=== PATIENT | female | born 1955 | race Hispanic/Latino ===

== ENCOUNTER 2018-11-01 10:34 | Emergency (ER) | payer OTHER ==
--- NOTE | 2018-11-01 12:42 | ER ---
Nurse's Notes [facility] Name: Marianna Rosales Age: 63 yrs Sex: Female : 1955 Arrival Date: 11/01/2018 Time: 10:35 Bed 15 Private MD: Diagnosis: Neuralgia and neuritis, unspecified;Cervical disc disorders Presentation: 11/01 10:51 Presenting complaint: Patient states: "the veins in my neck feel like pressure and the aa5 veins in my leg too". Pt c/o john leg swelling. Pt reports symptoms began 1 week ago. Denies headache, denies dizziness. Pt states "also my tremors are getting worse". Transition of care: patient was not received from another setting of care. Onset of symptoms was October 2018. Risk Assessment: Do you want to hurt yourself or someone else? Patient reports no desire to harm self or others. Initial Sepsis Screen: Does the patient meet any 2 criteria? No. Patient's initial sepsis screen is negative. Does the patient have a suspected source of infection? No. Patient's initial sepsis screen is negative. Care prior to arrival: None. 10:51 Method Of Arrival: Ambulatory aa5 10:51 Acuity: DESI 3 aa5 Historical: - Allergies: 10:54 No Known Allergies; aa5 - Home Meds: 10:54 atenolol 50 mg Oral tab [Active]; carbidopa-levodopa 25-100 mg Oral tab [Active]; aa5 aspirin 81 mg Oral chew 1 tab once daily [Active]; - PMHx: 10:54 tremors (possible parkinson's); Hypertension; aa5 - PSHx: 10:54 None; aa5 - Immunization history:: Flu vaccine status is unknown. - Social history:: Smoking status: Patient/guardian denies using tobacco. - Ebola Screening: : No symptoms or risks identified at this time. Screenin:07 Abuse screen: Denies threats or abuse. Denies injuries from another. Nutritional ph screening: No deficits noted. Tuberculosis screening: No symptoms or risk factors identified. Fall Risk None identified. Vital Signs: 10:54 BP 139 / 76; Pulse 65; Resp 18 S; Temp 97.9(TE); Pulse Ox 97% on R/A; Weight 74.39 kg aa5 (R); Height 5 ft. 4 in. (164 cm) (R); Pain 0/10; 10:54 Body Mass Index 27.66 (74.39 kg, 164 cm) [facility] ED Course: 10:35 Patient arrived in ED. as 10:51 Arm band placed on. [facility] 10:53 Triage completed. [facility] 12:04 Abdirashid Hall MD is Attending Physician. 12:06 Milagro Mckeon RN is Primary Nurse. ph 12:08 Patient has correct armband on for positive identification. Bed in low position. Call light in reach. Side rails up X 1. Administered Medications: No medications were administered Outcome: 12:41 Discharge ordered by . 13:19 Patient left the ED. ph Signatures: Brandi Salomon Audri, FILIBERTO RN [facility] Milagro Mckeon, FILIBERTO [facility] Abdirashid Hall MD MD
--- NOTE | 2018-11-01 12:42 | EDPHYS ---
Physician Documentation [facility] Name: Marianna Rosales Age: 63 yrs Sex: Female : 1955 Arrival Date: 11/01/2018 Time: 10:35 Bed 15 Private MD: ED Physician Abdirashid Hall HPI: 11/01 13:04 This 63 yrs old Female presents to ER via Ambulatory with complaints of Leg gs Pain, Neck Pain, >24Hrs Old. 13:04 The patient or guardian complains of pain, that is acute. The symptoms are located on gs the left supraclavicular area. Onset: The symptoms/episode began/occurred 8 day(s) ago. Associated signs and symptoms: Pertinent negatives: fever, headache, bladder incontinence, bowel incontinence, numbness, tingling, weakness. The pain does not radiate. Modifying factors: the symptoms are aggravated by movement. Severity of symptoms: At their worst the symptoms were moderate, in the emergency department the symptoms are unchanged. The patient has not experienced similar symptoms in the past. ALSO COMPLAINS OF VEINS IN LEGS HURTING HAS A HISTORY OF VARICOSE VEINS AND VARICOSE VEIN SURGERY, STILL HAS VV.. Historical: - Allergies: 10:54 No Known Allergies; aa5 - Home Meds: 10:54 atenolol 50 mg Oral tab [Active]; carbidopa-levodopa 25-100 mg Oral tab [Active]; aa5 aspirin 81 mg Oral chew 1 tab once daily [Active]; - PMHx: 10:54 tremors (possible parkinson's); Hypertension; aa5 - PSHx: 10:54 None; aa5 - Immunization history:: Flu vaccine status is unknown. - Social history:: Smoking status: Patient/guardian denies using tobacco. - Ebola Screening: : No symptoms or risks identified at this time. ROS: 13:04 All other systems are negative. gs Exam: 13:04 Head/Face: Normocephalic, atraumatic. Eyes: Pupils equal round and reactive to light, gs extra-ocular motions intact. Lids and lashes normal. Conjunctiva and sclera are non-icteric and not injected. Cornea within normal limits. Periorbital areas with no swelling, redness, or edema. ENT: Nares patent. No nasal discharge, no septal abnormalities noted. Tympanic membranes are normal and external auditory canals are clear. Oropharynx with no redness, swelling, or masses, exudates, or evidence of obstruction, uvula midline. Mucous membranes moist. Chest/axilla: Normal chest wall appearance and motion. Nontender with no deformity. No lesions are appreciated. Cardiovascular: Regular rate and rhythm with a normal S1 and S2. No gallops, murmurs, or rubs. Normal PMI, no JVD. No pulse deficits. Respiratory: Lungs have equal breath sounds bilaterally, clear to auscultation and percussion. No rales, rhonchi or wheezes noted. No increased work of breathing, no retractions or nasal flaring. Abdomen/GI: Soft, non-tender, with normal bowel sounds. No distension or tympany. No guarding or rebound. No evidence of tenderness throughout. Back: No spinal tenderness. No costovertebral tenderness. Full range of motion. Skin: Warm, dry with normal turgor. Normal color with no rashes, no lesions, and no evidence of cellulitis. Neuro: Awake and alert, GCS 15, oriented to person, place, time, and situation. Cranial nerves II-XII grossly intact. Motor strength 5/5 in all extremities. Sensory grossly intact. Cerebellar exam normal. Normal gait. 13:04 Constitutional: The patient appears alert, awake. 13:04 Neck: External neck: tenderness, that is mild, of the left sternocleidomastoid, C-spine: vertebral tenderness, is not appreciated, ROM/movement: pain, that is mild, Meningeal signs: are not present. 13:04 Musculoskeletal/extremity: Pulses: are normal with no appreciated deficits, Perfusion: gs the patient is normally perfused throughout, Calf tenderness, is absent, DVT Exam: no pain, no swelling, no tenderness, negative Homans' sign noted on exam, no appreciated bluish discoloration, no erythema, no increased warmth, BL vv NOTED LOWER EXTREMITIES. Vital Signs: 10:54 BP 139 / 76; Pulse 65; Resp 18 S; Temp 97.9(TE); Pulse Ox 97% on R/A; Weight 74.39 kg aa5 (R); Height 5 ft. 4 in. (164 cm) (R); Pain 0/10; 10:54 Body Mass Index 27.66 (74.39 kg, 164 cm) aa5 MDM: 12:28 Patient medically screened. gs 13:04 Differential diagnosis: Cervical Raiculopathy cervical strain, NEUROPATHIC PAIN. Data gs reviewed: vital signs, nurses notes. Counseling: I had a detailed discussion with the patient and/or guardian regarding: the historical points, exam findings, and any diagnostic results supporting the discharge/admit diagnosis, the need for outpatient follow up. Administered Medications: No medications were administered Disposition: 11/01/18 12:41 Discharged to Home. Impression: Neuralgia and neuritis, unspecified, Cervical disc disorders. - Condition is Stable. - Discharge Instructions: Cervical Radiculopathy, Neuropathic Pain. - Prescriptions for Tylenol- Codeine #3 300-30 mg Oral Tablet - take 1 tablet by ORAL route every 12 hours As needed; 10 tablet. - Medication Reconciliation Form, Thank You Letter, Antibiotic Education, Prescription Opioid Use form. - Follow up: Private Physician; When: 2 - 3 days; Reason: Re-evaluation by your physician. Signatures: Celestina Lopez RN RN aa5 Milagro Mckeon RN RN ph HallAbdirashid MD MD Corrections: (The following items were deleted from the chart) 13:19 12:41 11/01/2018 12:41 Discharged to Home. Impression: Neuralgia and neuritis, ph unspecified; Cervical disc disorders. Condition is Stable. Forms are Medication Reconciliation Form, Thank You Letter, Antibiotic Education, Prescription Opioid Use. Follow up: Private Physician; When: 2 - 3 days; Reason: Re-evaluation by your physician.
== END 2018-11-01 13:19 | disposition home or self-care (01) ==
LOC: ER 10:34
DX: M79.2 Neuralgia and neuritis, unspecified (principal); M50.80 Other cervical disc disorders, unspecified cervical region; I10 Essential (primary) hypertension; R25.1 Tremor, unspecified; Z79.82 Long term (current) use of aspirin

== ENCOUNTER 2022-12-22 01:22 | Emergency (ER) | payer OTHER ==
[2022-12-22] MEDS ORDERED: DIPHENHYDRAMINE 25 MG TAB/CAP ONE (02:26)
[2022-12-22] MEDS ORDERED: BENZONATATE 100 MG CAP PO ONE (02:26)
[2022-12-22] MEDS ORDERED: CODEINE 30MG/APAP 300MG TAB ONE (02:27)
[2022-12-22] MEDS ORDERED: PROMETHAZINE 25 MG TABLET ONE (02:27)
[2022-12-22 02:34] LABS: Absolute Lymphocytes (CBC) 1.2 K/uL (0.7-4.9); Hematocrit 40.3 % (36.0-45.0); Lymphocytes % 13.6 % (15.3-44.8); MPV 9.8 fL (7.6-11.3); RBC Red Blood Cell Count 4.42 M/uL (3.86-4.86)
[2022-12-22 02:35] LABS: Protime INR 1.17
[2022-12-22 02:57] LABS: Albumin 3.6 g/dL (3.4-5.0); Bilirubin Direct 0.1 mg/dL (0-0.2); Bilirubin Indirect, Calculated 0.3 mg/dL (0.2-0.8); Bilirubin Total 0.4 mg/dL (0.2-1.0); Potassium 3.4 mEq/L (3.5-5.1); Protein, Total 7.4 g/dL (6.4-8.2); Troponin High Sensitivity 5.6 pg/mL (<58.9)
--- NOTE | 2022-12-22 03:19 | EDPHYS ---
Physician Documentation [facility] Name: Marianna Rosales Age: 67 yrs Sex: Female : 1955 Arrival Date: 12/22/2022 Time: 01:22 Bed 3 Private MD: ED Physician Clint Hraris HPI: 12/22 01:35 This 67 yrs old Female presents to ER via EMS with complaints of General sp4 complaint. 01:48 67-year-old female presents for complaint of elevated blood pressure.. sp4 02:41 Pleasant Bulgarian-speaking female presents with EMS for elevated blood pressure, that sp4 was associated with a right-sided nosebleed. Nosebleed was just prior to arrival. And lasted 5 minutes and stopped. Patient also reported elevated blood pressure, cough and congestion. It started yesterday. Patient was concerned about nosebleed and called an ambulance. . Historical: - Allergies: 01:27 No Known Allergies; ll3 - Home Meds: 01:27 carbidopa-levodopa 25-100 mg Oral tab [Active]; atenolol 50 mg Oral tab [Active]; ll3 amlodipine oral [Active]; Mirtazapine Oral [Active]; - PMHx: 01:27 Hypertension; tremors (possible parkinson's); ll3 - Immunization history:: Client reports receiving the 1st dose of the Covid vaccine. - Social history:: Smoking status: Patient denies any tobacco usage or history of. - Family history:: not pertinent. ROS: 02:41 Constitutional: Negative for fever, chills, and weight loss, positive for elevated sp4 blood pressure, nosebleed, and cough Eyes: Negative for injury, pain, redness, and discharge, ENT: Negative for injury, pain, and discharge, Positive right nose bleed Neck: Negative for injury, pain, and swelling, Cardiovascular: Negative for chest pain, palpitations, and edema, Respiratory: Negative for shortness of breath, cough, wheezing, and pleuritic chest pain, Abdomen/GI: Negative for abdominal pain, nausea, vomiting, diarrhea, and constipation, Back: Negative for injury and pain, : Negative for injury, bleeding, discharge, and swelling, MS/Extremity: Negative for injury and deformity, Skin: Negative for injury, rash, and discoloration, Neuro: Negative for headache, weakness, numbness, tingling, and seizure, Psych: Negative for depression, anxiety, Allergy/Immunology: Negative for hives, rash, and allergies Endocrine: Negative for neck swelling, polydipsia, polyuria, polyphagia, and weight changes Hematologic/Lymphatic: Negative for swollen nodes, abnormal bleeding, and unusual bruising Exam: 02:41 Constitutional: This is a well developed, well nourished patient who is awake, alert, sp4 and in no acute distress. Head/Face: Normocephalic, atraumatic. Eyes: Pupils equal round and reactive to light, extra-ocular motions intact. Lids and lashes normal. Conjunctiva and sclera are not injected. Cornea within normal limits. Periorbital areas with no swelling, redness, or edema. ENT: Nares patent. No nasal discharge, no septal abnormalities noted. Tympanic membranes are normal and external auditory canals are clear. Oropharynx with no redness, swelling, or masses, exudates, or evidence of obstruction, uvula midline. Mucous membranes moist. Neck: Trachea midline, no thyromegaly or masses palpated, and no cervical lymphadenopathy. Supple, full range of motion without nuchal rigidity, or vertebral point tenderness. Chest/axilla: Normal chest wall appearance and motion. Nontender with no deformity. No lesions are appreciated. Cardiovascular: Regular rate and rhythm with a normal S1 and S2. No gallops, murmurs, or rubs. Normal PMI, no JVD. No pulse deficits. Respiratory: Lungs have equal breath sounds bilaterally, clear to auscultation and percussion. No rales, rhonchi or wheezes noted. No increased work of breathing, no retractions or nasal flaring. Abdomen/GI: Soft, non-tender, with normal bowel sounds. No distension or tympany. No guarding or rebound. No evidence of tenderness throughout. Back: No spinal tenderness. No costovertebral tenderness. Skin: Warm, dry with normal turgor. Normal color with no rashes, no lesions, and no evidence of cellulitis. MS/ Extremity: Pulses equal, no cyanosis. Neurovascular intact. Full, normal range of motion. Neuro: Awake and alert, GCS 15, oriented to person, place, time, and situation. Cranial nerves II-XII grossly intact. Motor strength 5/5 in all extremities. Sensory grossly intact. Psych: Awake, alert, with orientation to person, place and time. Behavior, mood, and affect are within normal limits Vital Signs: 01:31 BP 144 / 86; Pulse 86; Resp 20; Temp 99.1(O); Pulse Ox 95% on R/A; Weight 73.03 kg (R); ll3 Height 5 ft. 2 in. (R); Pain 7/10; 02:30 BP 139 / 77; Pulse 83; Resp 16; Pulse Ox 95% on R/A; ll3 03:20 BP 138 / 77; Pulse 82; Resp 18; Pulse Ox 95% on R/A; ha1 01:31 Body Mass Index 29.45 (73.03 kg, 157.48 cm) ll3 01:31 Pain Scale: Adult ll3 MDM: 01:48 Patient medically screened. sp4 03:12 Data reviewed: vital signs, nurses notes, EMS record, lab test result(s), cardiac sp4 enzymes, CBC, electrolytes, hepatic panel, radiologic studies, plain films. Consideration of Admission/Observation Patient was admitted/placed on observation. Escalation of care including admission/observation considered. ED course: EXAM: XR Chest, 1 View CLINICAL HISTORY: The patient is 67 years old and is Female; CHEST PAIN TECHNIQUE: Frontal view of the chest. COMPARISON: No relevant prior studies available. FINDINGS: Lungs: Mildly prominent interstitial markings. No consolidation. Pleural space: Unremarkable. No pneumothorax. Heart: Unremarkable. Mediastinum: Unremarkable. Bones/joints: Disc space narrowing with degenerative endplate changes in the spine. Tubes, lines and devices: Device overlying the right chest. IMPRESSION: No acute findings in the chest. . ED course: Chemistry panel reveals blood sugar 131 otherwise normal, CBC basically normal, LFT normal, troponin is normal, BNP at 155. It seems that patient has upper respiratory infection bronchitis, will start Zithromax, and also cough suppressant. There is no active nosebleed in the ER, and patient does not require nasal packing. Blood pressure has normalized in the ER.. 03:17 ED course: Will be discharged home with Zithromax and dextromethorphan. sp4 12/22 01:48 Order name: Basic Metabolic Panel; Complete Time: 03:12 sp4 12/22 01:48 Order name: CBC with Diff; Complete Time: 02:46 sp4 12/22 01:48 Order name: LFT's; Complete Time: 03:12 4 12/22 01:48 Order name: NT PRO-BNP; Complete Time: 03:12 [facility] 12/22 01:48 Order name: PT-INR; Complete Time: 02:35 [facility] 12/22 01:48 Order name: Troponin HS; Complete Time: 03:12 [facility] 12/22 02:01 Order name: SARS RAPID; Complete Time: 03:34 [facility] 12/22 02:01 Order name: Influenza Screen (a \T\ B) [facility] 12/22 01:48 Order name: XRAY Chest (1 view) [facility] 12/22 01:48 Order name: EKG; Complete Time: 01:48 [facility] 12/22 01:48 Order name: IV Saline Lock; Complete Time: 02:03 [facility] 12/22 01:48 Order name: Labs collected and sent; Complete Time: 02:03 [facility] 12/22 01:48 Order name: O2 Per Protocol; Complete Time: 01:53 [facility] 12/22 01:48 Order name: O2 Sat Monitoring; Complete Time: 01:53 sp4 Administered Medications: 02:30 Drug: Acetaminophen-Codeine PO (300 mg-30 mg) 2 tabs Route: PO; ll3 02:30 Drug: Tessalon Perle PO 200 mg Route: PO; ll3 02:30 Drug: Promethazine PO 25 mg Route: PO; ll3 02:30 Drug: diphenhydrAMINE PO 25 mg Route: PO; ll3 Disposition Summary: 12/22/22 03:19 Discharge Ordered Location: Home sp4 Problem: new sp4 Symptoms: have improved sp4 Condition: Stable sp4 Diagnosis - Acute bronchitis, unspecified sp4 - Epistaxis sp4 - Renovascular hypertension, elevated blood pressure sp4 - Acute COVID-19, acute viral bronchitis sp4 Followup: sp4 - With: Private Physician - When: 7 - 10 days - Reason: Discharge Instructions: - Discharge Summary Sheet sp4 - Acute Bronchitis, Adult sp4 Prescriptions: - dextromethorphan HBr 15 mg/5 mL Oral liquid - take 10 milliliter by ORAL route every 6 hours PRN cough; 89 milliliter; sp4 Refills: 0, Product Selection Permitted - Zithromax Z-Darwin 250 mg Oral Tablet - take 1 tablet by ORAL route as directed for 5 days Day 1 - take two (2) tablets sp4 one time. Day 2, 3, 4 , 5 take one (1) tablet once daily.; 6 tablet; Refills: 0, Product Selection Permitted Signatures: Dispatcher [employer] Odalis Fernandez RN RN ll3 Clint Harris MD MD sp4 Corrections: (The following items were deleted from the chart) 02:13 01:48 Cardiac monitoring ordered. sp4 3 02:13 01:48 EKG - Nurse/Tech ordered. sp4 ll3
--- NOTE | 2022-12-22 03:19 | ER ---
Nurse's Notes [facility] Name: Marianna Rosales Age: 67 yrs Sex: Female : 1955 Arrival Date: 12/22/2022 Time: : Bed 3 Private MD: Diagnosis: Acute bronchitis, unspecified;Epistaxis;Renovascular hypertension, elevated blood pressure;Acute COVID-19, acute viral bronchitis Presentation: 12/22 01:24 Chief complaint: EMS states: Toned out for high BP at home, systolic 155, pt c/o H/A, ll3 cough, and HTN. Initial Sepsis Screen: Does the patient meet any 2 criteria? No. Patient's initial sepsis screen is negative. Does the patient have a suspected source of infection? No. Patient's initial sepsis screen is negative. Risk Assessment: Do you want to hurt yourself or someone else? Patient reports no desire to harm self or others. Onset of symptoms was December 22, 2022. Care prior to arrival: IV initiated. 20 GA, in the left antecubital area. 01:24 Method Of Arrival: EMS: [facility] ll3 01:24 Acuity: DESI 3 ll3 01:31 Coronavirus screen: Vaccine status: Patient reports receiving the 1st dose of the Covid ll3 vaccine. cough unrelated to allergies, headache. Ebola Screen: No symptoms or risks identified at this time. Triage Assessment: 01:31 General: Appears uncomfortable, Behavior is calm, cooperative. Pain: Complains of pain ll3 in H/a. EENT: Reports Nose bleed [employer]. Neuro: Level of Consciousness is awake, alert, obeys commands, Oriented to person, place, time, situation, Reports headache. Cardiovascular: Denies chest pain, shortness of breath, Patient's skin is warm and dry. Respiratory: Reports cough that is Respiratory effort is even, unlabored, Respiratory pattern is regular, symmetrical. Derm: Skin is pink, warm \T\ dry. Historical: - Allergies: No Known Allergies; ll3 - Home Meds: carbidopa-levodopa 25-100 mg Oral tab [Active]; atenolol 50 mg Oral tab [Active]; ll3 amlodipine oral [Active]; Mirtazapine Oral [Active]; - PMHx: 01:27 Hypertension; tremors (possible parkinson's); ll3 - Immunization history:: Client reports receiving the 1st dose of the Covid vaccine. - Social history:: Smoking status: Patient denies any tobacco usage or history of. - Family history:: not pertinent. Screenin:36 [facility] ED Fall Risk Assessment (Adult) History of falling in the last 3 months, ll3 including since admission No falls in past 3 months (0 pts) Confusion or Disorientation No (0 pts) Intoxicated or Sedated No (0 pts) Impaired Gait No (0 pts) Mobility Assist Device Used No (0 pt) Altered Elimination No (0 pt) Score/Fall Risk Level 0 - 2 = Low Risk Oriented to surroundings, Maintained a safe environment, Educated pt \T\ family on fall prevention, incl call for assistance when getting out of bed. Abuse screen: Denies threats or abuse. Denies injuries from another. Nutritional screening: No deficits noted. Tuberculosis screening: No symptoms or risk factors identified. Assessment: 02:20 Reassessment: Patient and/or family updated on plan of care and expected duration. Pain ha1 level reassessed. Patient is alert, oriented x 3, equal unlabored respirations, skin warm/dry/pink. 03:20 Reassessment: Patient and/or family updated on plan of care and expected duration. Pain ha1 level reassessed. Patient is alert, oriented x 3, equal unlabored respirations, skin warm/dry/pink. Patient states feeling better. Patient states symptoms have improved. Vital Signs: 01:31 BP 144 / 86; Pulse 86; Resp 20; Temp 99.1(O); Pulse Ox 95% on R/A; Weight 73.03 kg (R); ll3 Height 5 ft. 2 in. (R); Pain 7/10; 02:30 BP 139 / 77; Pulse 83; Resp 16; Pulse Ox 95% on R/A; ll3 03:20 BP 138 / 77; Pulse 82; Resp 18; Pulse Ox 95% on R/A; ha1 01:31 Body Mass Index 29.45 (73.03 kg, 157.48 cm) ll3 01:31 Pain Scale: Adult ll3 ED Course: 01:23 Patient arrived in ED. sb4 01:26 Triage completed. ll3 01:27 Arm band placed on Patient placed in an exam room, on a stretcher, on pulse oximetry. ll3 01:35 Clint Harris MD is Attending Physician. sp4 01:36 Patient has correct armband on for positive identification. Bed in low position. Call ll3 light in reach. Side rails up X 1. 01:36 Maintain EMS IV. Dressing intact. Good blood return noted. Site clean \T\ dry. Gauge \T\ ll 3 site: 20 LAC. 02:22 XRAY Chest (1 view) In Process Unspecified. EDMS 02:50 No provider procedures requiring assistance completed. ll3 03:53 IV discontinued, intact, bleeding controlled, No redness/swelling at site. Pressure ha1 dressing applied. Administered Medications: 02:30 Drug: Acetaminophen-Codeine PO (300 mg-30 mg) 2 tabs Route: PO; ll3 02:30 Drug: Tessalon Perle PO 200 mg Route: PO; ll3 02:30 Drug: Promethazine PO 25 mg Route: PO; ll3 02:30 Drug: diphenhydrAMINE PO 25 mg Route: PO; ll3 Medication: 03:53 VIS not applicable for this client. ha1 Outcome: 03:19 Discharge ordered by . sp4 03:53 Discharged to home ambulatory. ha1 03:53 Condition: stable 03:53 Discharge instructions given to patient, Instructed on discharge instructions, follow up and referral plans. medication usage, Demonstrated understanding of instructions, follow-up care, medications, Prescriptions given X 2. 03:53 Patient left the ED. ha1 Signatures: Dispatcher [employer] EDVT Odalis Beyer RN RN ll3 Soha Conde RN RN ha1 Kristy Hill, PARose Marie PARose Marie 4 Clint Harris MD MD sp4
[2022-12-22 03:33] LABS: SARS-CoV-2 Antigen Rapid Res Positive (Negative)
[2022-12-22 03:59] VITALS: TEMP 99.1; O2SAT 95
[2022-12-22 04:02] VITALS: BP 138/77
--- NOTE | 2022-12-22 11:26 | RAD REPORT ---
EXAM DESCRIPTION: RAD - Chest Single View - 12/22/2022 2:20 am CLINICAL HISTORY: The patient is 67 years old and is Female; CHEST PAIN TECHNIQUE: Frontal view of the chest. COMPARISON: No relevant prior studies available. FINDINGS: Lungs: Mildly prominent interstitial markings. No consolidation. Pleural space: Unremarkable. No pneumothorax. Heart: Unremarkable. Mediastinum: Unremarkable. Bones/joints: Disc space narrowing with degenerative endplate changes in the spine. Tubes, lines and devices: Device overlying the right chest. IMPRESSION: No acute findings in the chest. Electronically signed by: Salvador Stringer MD 12/22/2022 2:35 AM CDT Due to temporary technical issues with the PACS/Fluency reporting system, reports are being signed by the in house radiologist without review as a courtesy to ensure prompt reporting. The interpreting r adiologist is fully responsible for the content of the report.
== END 2022-12-22 03:53 | disposition home or self-care (01) ==
LOC: ER 01:22
DX: U07.1 COVID-19 (principal); J20.8 Acute bronchitis due to other specified organisms; I15.0 Renovascular hypertension; R04.0 Epistaxis
CPT/HCPCS: 85025; 80048; 36415; 85610; 80076; 84484; 83880; 87804 ×2; 71045; 99284; 87811; Q0169